=== PATIENT | female | born 1945 | race Caucasian/White ===

== ENCOUNTER 2016-09-05 12:17 | Inpatient (IN) | payer MEDICARE, BC, OTHER ==
[~2016-09-05] VITALS: Ht 160 cm; Wt 112.0 kg
[2016-09-05 13:44] LABS: PH 5 (5-8); SQUAMOUS EPITHELIAL 0-2 /hpf; URINE APPEARANCE Hazy; URINE BACTERIA None Seen /hpf; URINE BILIRUBIN Negative (NEGATIVE); URINE BLOOD 2+ (NEGATIVE); URINE COLOR Yellow; URINE GLUCOSE Negative (NEGATIVE); URINE KETONE 1+ (NEGATIVE); URINE RBC 0-2 /hpf; URINE UROBILINOGEN Negative (NEGATIVE); URINE WBC 0-2 /hpf
[2016-09-05 14:00] LABS: BASO % 0.3 % (0.0-2.0); GRAN # 10.7 (1.4-6.5); GRAN % 79.4 % (42.2-75.2); HEMATOCRIT 44.3 % (37.0-47.0); HEMOGLOBIN 14.8 g/dl (12.5-16.0); LYMPH # 1.7 (1.2-3.4); LYMPH % 12.6 % (20.0-51.0); MEAN CELL VOLUME 89 fl (80.0-100.0); MEAN CORPUSCULAR HEMOGLOBIN 30 pg (27.0-31.0); MEAN CORPUSCULAR HGB CONC 33 g/dl (33.0-37.0); MEAN PLATELET VOLUME 9.3 fl (7.4-10.4); MONO % 7.3 % (1.7-9.3); PLATELET COUNT 264 K/mm3 (130-400); RED BLOOD COUNT 4.96 M/mm3 (4.10-5.30); REDCELL DISTRIBUTION WIDTH-CV 13.8 % (11.5-14.5); WHITE BLOOD COUNT 13.5 K/mm3 (4.8-10.8)
[2016-09-05 14:12] LABS: ADJUSTED CALCIUM 9.5 mg/dL (8.4-10.2); ALBUMIN 4.5 gm/dL (3.5-5.0); BILIRUBIN,TOTAL 1.1 mg/dL (0.0-1.0); C-REACTIVE PROTEIN 0.8 mg/dL (0.0-0.9); CALCIUM 9.9 mg/dL (8.4-10.2); CREATININE, serum 0.66 mg/dL (0.52-1.25); POTASSIUM 3.8 mmol/L (3.4-5.0); TOTAL PROTEIN 7.4 gm/dL (6.4-8.2)
[2016-09-05] MEDS ORDERED: DIOVAN 160MG160 MG PO (14:16)
[2016-09-05] MEDS ORDERED: SYNTHROID 0.10.15 MG PO (14:16)
[2016-09-05] MEDS ORDERED: GLUCOSAMINE & C1 CA1 PO (14:17)
[2016-09-05] MEDS ORDERED: PEPCID40 MG PO (14:17)
[2016-09-05] MEDS ORDERED: LINZESS145CAP PO (14:17)
[2016-09-05] MEDS ORDERED: MOBIC15 MG PO (14:17)
[2016-09-05] MEDS ORDERED: ULTRAM 50MG TAB50 MG PO (14:18)
[2016-09-05] MEDS ORDERED: LEVSIN0.125 M1 PO (14:18)
[2016-09-05 17:07] VITALS: BP 142/60; PULSE 83; TEMP 98
[2016-09-05] MEDS ORDERED: MULTI VITAMINS1 TAB PO (17:21)
[2016-09-05] MEDS ORDERED: CALCIUM-500 5001 CTB PO (17:21)
[2016-09-05 20:52] VITALS: BP 143/60; PULSE 74; TEMP 98.8
[2016-09-05 21:46] VITALS: BP 143/60; PULSE 74; TEMP 98.8
[2016-09-06] VITALS (13 sets, daily range): BP systolic 95–131; BP diastolic 46–81; PULSE 53–88; TEMP 97.9–99
[2016-09-06 06:54] LABS: BASO % 0.4 % (0.0-2.0); GRAN # 7.2 (1.4-6.5); GRAN % 64.9 % (42.2-75.2); HEMATOCRIT 39.1 % (37.0-47.0); LYMPH # 2.5 (1.2-3.4); LYMPH % 22.7 % (20.0-51.0); MEAN CELL VOLUME 93 fl (80.0-100.0); MEAN CORPUSCULAR HEMOGLOBIN 30 pg (27.0-31.0); MEAN CORPUSCULAR HGB CONC 32 g/dl (33.0-37.0); MEAN PLATELET VOLUME 9.6 fl (7.4-10.4); MONO # 1.3 (0.1-0.6); MONO % 11.6 % (1.7-9.3); PLATELET COUNT 232 K/mm3 (130-400); RED BLOOD COUNT 4.21 M/mm3 (4.10-5.30); REDCELL DISTRIBUTION WIDTH-CV 14.2 % (11.5-14.5); WHITE BLOOD COUNT 11.1 K/mm3 (4.8-10.8)
[2016-09-06 07:02] LABS: HEMOGLOBIN 12.5 g/dl (12.5-16.0)
[2016-09-06 07:36] LABS: CALCIUM 8.1 mg/dL (8.4-10.2); CREATININE, serum 0.73 mg/dL (0.52-1.25); POTASSIUM 3.4 mmol/L (3.4-5.0)
[2016-09-07 01:27] VITALS: BP 99/50; PULSE 59; TEMP 98.2
[2016-09-07 05:21] VITALS: BP 115/54; PULSE 58; TEMP 98.3
[2016-09-07 09:06] VITALS: BP 102/49; PULSE 72; TEMP 97.5
[2016-09-07 15:04] VITALS: BP 110/47; PULSE 71; TEMP 97.9
[2016-09-07 17:44] VITALS: BP 124/46; PULSE 72; TEMP 98.1
[2016-09-07 21:13] VITALS: BP 115/40; PULSE 80; TEMP 98
[2016-09-08 05:58] VITALS: BP 117/52; PULSE 73; TEMP 98
[2016-09-08] MEDS ORDERED: ROXICODONE 55 MG/TAB PO (07:21)
== END 2016-09-08 08:30 | disposition home or self-care (01) | DRG 355 ==
LOC: COL.ER 12:17 → SURG 15:54 → JCC 15:54 → SURG 09-06 10:43
PROVIDERS: Emergency Medicine; Surgery
PROC: 8E0W4CZ Robotic Assisted Procedure of Trunk Region, Percutaneous Endoscopic Approach (ICD-10-PCS; 2016-09-06)
PROC: 0WUF4JZ Supplement Abdominal Wall with Synthetic Substitute, Percutaneous Endoscopic Approach (ICD-10-PCS; principal; 2016-09-06 07:30)
DX: K43.6 Other and unspecified ventral hernia with obstruction, without gangrene (principal); I10 Essential (primary) hypertension; K44.9 Diaphragmatic hernia without obstruction or gangrene
CPT/HCPCS: OP; A4315; C1713; C1781; G0378; J0330; J0690; J1100; J1170; J2270; J2405; J2543; J2550; J2704; J2710; J3010; J7030; J7042; J7050; Q9967

== ENCOUNTER → 2016-10-21 | Outpatient (CLI) | payer MEDICARE, BC, OTHER ==
[~2016-10-21] MED LIST: CALCIUM-500 5001 CTB PO; DIOVAN 160MG160 MG PO; GLUCOSAMINE & C1 CA1 PO; LEVSIN0.125 M1 PO; LINZESS145CAP PO; MOBIC15 MG PO; MULTI VITAMINS1 TAB PO; PEPCID40 MG PO; ROXICODONE 55 MG/TAB PO; SYNTHROID 0.10.15 MG PO; ULTRAM 50MG TAB50 MG PO
== END ==
LOC: MC.RAD 10-17 09:20
DX: Z12.31 Encounter for screening mammogram for malignant neoplasm of breast (principal)

== ENCOUNTER → 2017-01-29 | Outpatient (CLI) | payer MEDICARE, BC, OTHER | LOC: COL.RAD 12:23 | DX: M47.816 Spondylosis without myelopathy or radiculopathy, lumbar region (principal) ==

== ENCOUNTER 2017-04-09 09:30 | Outpatient (RCR) | payer MEDICARE, BC, OTHER | END 2017-04-09 12:14 | disposition home or self-care (01) | LOC: WSPT 09:30 | DX: M48.061 Spinal stenosis, lumbar region without neurogenic claudication (principal); Z98.890 Other specified postprocedural states | CPT/HCPCS: G8978-GP; G8979-GP; G8980-GP ==

== ENCOUNTER → 2017-11-10 | Outpatient (CLI) | payer MEDICARE, BC, OTHER | LOC: MC.RAD 13:57 | DX: Z12.31 Encounter for screening mammogram for malignant neoplasm of breast (principal) ==

== ENCOUNTER 2018-03-06 09:00 | Outpatient (RCR) | payer MEDICARE, BC, OTHER | END 2018-03-31 | disposition home or self-care (01) | LOC: WSC | DX: M76.822 Posterior tibial tendinitis, left leg (principal) | CPT/HCPCS: G8978-GP; G8979-GP ==

== ENCOUNTER → 2018-12-28 | Outpatient (CLI) | payer MEDICARE, BC, OTHER | LOC: MC.RAD 09:07 | DX: Z12.31 Encounter for screening mammogram for malignant neoplasm of breast (principal) ==

== ENCOUNTER 2019-05-20 08:15 | Outpatient (RCR) | payer BC, OTHER | END 2019-06-06 | disposition still patient (30) | LOC: WSC | DX: M43.16 Spondylolisthesis, lumbar region (principal); M47.816 Spondylosis without myelopathy or radiculopathy, lumbar region; M48.00 Spinal stenosis, site unspecified; Z96.652 Presence of left artificial knee joint ==

== ENCOUNTER 2019-12-24 14:45 | Outpatient (RCR) | payer BC, OTHER | END 2020-01-27 | disposition home or self-care (01) | LOC: WSC | DX: M17.11 Unilateral primary osteoarthritis, right knee (principal); Z96.651 Presence of right artificial knee joint ==

== ENCOUNTER 2024-03-02 13:23 | Outpatient (RCR) | payer MEDICARE, BC, OTHER | END 2024-03-04 | disposition home or self-care (01) | LOC: COL.CR | DX: J84.9 Interstitial pulmonary disease, unspecified (principal) | CPT/HCPCS: G0238 ==